=== PATIENT | female | born 1985 | race Hispanic/Latino ===

== ENCOUNTER 2018-03-13 10:09 | Emergency (ER) | payer OTHER ==
[~2018-03-13] VITALS: Ht 165.1 cm; Wt 70.8 kg
[2018-03-13] MEDS ORDERED: VITAMIN B-6100 MG PO (13:31)
[2018-03-13] MEDS ORDERED: ULTRA SLEEP25 MG PO (13:31)
== END 2018-03-13 14:00 | disposition home or self-care (01) ==
LOC: ED 10:09
DX: O20.8 Other hemorrhage in early pregnancy (principal); O99.611 Diseases of the digestive system complicating pregnancy, first trimester; K80.20 Calculus of gallbladder without cholecystitis without obstruction; Z3A.10 10 weeks gestation of pregnancy
CPT/HCPCS: 76705; 76801; 80053; 81001; 83690; 84702; 85025; 86900; 86901; 96361; 96374; 99284; J2765; J7030

== ENCOUNTER 2021-04-08 09:01 | Day surgery (SDC) | payer OTHER ==
[~2021-04-08] VITALS: Ht 165.1 cm; Wt 79.5 kg
--- NOTE | ~2021-04-08 | OR ---
[facility] [address], [place] [address] Draft DATE OF OPERATION: 04/08/2021 SURGEON: Sidra Thompson DO PREOPERATIVE DIAGNOSIS: Miscarriage at 9 weeks gestation. POSTOPERATIVE DIAGNOSIS: Miscarriage at 9 weeks gestation. PROCEDURE PERFORMED: Suction dilation and curettage. ANESTHESIA: General. ESTIMATED BLOOD LOSS: 600 mL. SPECIMEN: Products of conception. FINDINGS: Normal external genitalia with normal vagina. However, significant apical prolapse of the cervix 2 cm beyond the hymenal ring. Ten-week size uterus. Products of conception noted in the suction tubing and canister. Hemostasis at the end of the procedure. COMPLICATIONS: None. INDICATIONS: Ms. Rubio is a pleasant 35-year-old female, who presented for routine OB care at 12 weeks gestation and heart rate was not found on Doppler. Ultrasound was performed that demonstrated intrauterine demise, estimated at 9 weeks gestation. We reviewed options for management of missed miscarriage and the patient elects for suction D and C. Risks, benefits, and alternatives were discussed in detail with the patient. The patient understands and wishes to proceed with the procedure. She also is requesting Anora chromosomal array. DESCRIPTION OF PROCEDURE: PATIENT NAME: LE RUBIO OPERATIVE REPORT DATE OF : 89 REPORT #: [id number] PHYSICIAN: SIDRA THOMPSON DO PCP: SIDRA THOMPSON DO REPORT IS CONFIDENTIAL AND NOT TO BE RELEASED WITHOUT AUTHORIZATION [facility] [address] [place], [place] [address] Draft The patient was taken to the operating room where a time-out was performed to confirm correct patient and correct procedure. General anesthesia was adequately established. The patient was prepped and draped in the dorsal lithotomy position with her feet in Yellofin stirrups. ICPs were on and running. No heparin was indicated, but the patient did receive oral doxycycline 200 mg 1 hour preoperatively. The bladder was drained. A weighted speculum was placed in vagina and the anterior lip of the cervix was grasped with an Allis clamp. Significant apical prolapse to 2 cm beyond the hymen was appreciated. The cervix was easily dilated to a #11 Hegar dilator. An #11 curved suction curette was then placed in the cervical os and advanced gently to the fundus. The suction was initiated and once in the green zone, the curette was slowly withdrawn while performing circumferential curettage by rotating the curette. Several passes were performed in the same manner with products of conception and blood noting in the tubing. A small amount of bleeding continued and the patient was given Pitocin. Sharp curettage was gently performed introducing a large sharp curette into the uterus and gently probing the uterine cavity. Small amount of products of conception were noted at the fundus. Bleeding ceased and the patient was taken to PACU in good and stable condition. Sponge, needle, and instrument count was correct x2 at the end of the procedure. DO SILVANA Wall/MIC /[id number] Copies: ~ PATIENT NAME: LE RUBIO OPERATIVE REPORT DATE OF : 89 REPORT #: [id number] PHYSICIAN: SIDRA THOMPSON DO PCP: SIDRA THOMPSON DO REPORT IS CONFIDENTIAL AND NOT TO BE RELEASED WITHOUT AUTHORIZATION
[~2021-04-08 09:01] MED LIST: ULTRA SLEEP25 MG PO; VITAMIN B-6100 MG PO
[2021-04-08] MEDS ORDERED: PRENATAL FORMU1 EAC3 PO (09:31)
[2021-04-08] MEDS ORDERED: IRON325 M1 PO (09:32)
--- NOTE | 2021-04-08 11:53 | NUR ---
04/08/21 1153 [place] 1150- PT ARRIVES TO PACU NONAROUSABLE TO NOXIOUS STIMULI WITH AN OPA IN PLACE. RESP EVEN AND UNLABORED. OXYGEN SAT HIGH 90'S TO 100% ON 10L VIA MASK. 1151- OXYGEN TITRATED DOWN TO 6L VIA MASK.
--- NOTE | 2021-04-08 12:53 | NUR ---
1235 PT BACK TO ROOM FROM PACU DROWSY AND TEARFULL, IS AT BEDSIDE, PT TAKING SIPS OF WATER TOLERATES WELL.
[2021-04-08] MEDS ORDERED: IBUPROFEN800 MG PO (13:07)
--- NOTE | 2021-04-08 14:04 | NUR ---
1345: VS CHECKED. TOLERATING WATER. NO NEEDS AT THIS TIME. CALL LIGHT WITHIN REACH. AT BEDSIDE.
--- NOTE | 2021-04-08 15:01 | NUR ---
voided 600mls red urine.
== END 2021-04-08 15:00 | disposition home or self-care (01) ==
LOC: OPS 09:01 → DS 09:07 → OPS 10:30 → DS 13:15 → OPS 15:00
PROVIDERS: ATTEND Obstetrics & Gynecology
PROC: 10D07Z8 Extraction of Products of Conception, Other, Via Natural or Artificial Opening (ICD-10-PCS; principal; 2021-04-08 10:30)
DX: O02.1 Missed abortion (principal)
CPT/HCPCS: 00952; 85027; A9270; J1100; J1885; J2250; J2405; J2590; J2704; J2765; J3010; J7121